=== PATIENT | male | born 1980 | race African-American/Black ===

== ENCOUNTER 2021-02-23 23:13 | Emergency (ER) | payer SELFPAY ==
[~2021-02-23] VITALS: Ht 185.4 cm; Wt 102.1 kg
[2021-02-24] MEDS ORDERED: HYDROCODONE/APAP 10-325 MG TABLET PO ONE
[2021-02-24] MEDS ORDERED: ONDANSETRON ODT 4 MG TAB.RAPDIS SL ONE
[2021-02-24] MEDS ORDERED: ONDANSETRON ODT 4 MG TAB.RAPDIS ONE (00:23)
[2021-02-24] MEDS ORDERED: HYDROCODONE/APAP 10-325 MG TABLET ONE (00:23)
[2021-02-24] MEDS ORDERED: ONDA4TAB5 PO (00:50)
[2021-02-24] MEDS ORDERED: HYDR-4209 PO (00:50)
[2021-02-24 01:29] VITALS: BP 139/88
--- NOTE | 2021-02-24 01:30 | NUR ---
Patient discharged to home in stable condition. Written and verbal after care instructions givenby Dr Waters. Patient verbalizes understanding of instructions. Stressed follow up or return to ER for worsening s/s.
== END 2021-02-24 01:30 | disposition home or self-care (01) ==
LOC: ER 23:15
DX: S00.83XA Contusion of other part of head, initial encounter (principal); S40.022A Contusion of left upper arm, initial encounter; S80.02XA Contusion of left knee, initial encounter; S80.01XA Contusion of right knee, initial encounter; S80.811A Abrasion, right lower leg, initial encounter; V47.5XXA Car driver injured in collision with fixed or stationary object in traffic accident, initial encounter; Y92.410 Unspecified street and highway as the place of occurrence of the external cause
CPT/HCPCS: 73090; A4663; Q0162